=== PATIENT | female | born 1985 | race Caucasian/White ===

== ENCOUNTER 2016-09-26 11:22 | Emergency (ER) | payer OTHER ==
[~2016-09-26] VITALS: Ht 165.1 cm; Wt 115.0 kg
[~2016-09-26 11:22] MED LIST: ALPR.25 PO; BUPR100CR PO; FLUC150T PO; MAXA5TAB2 PO; PRIL40CA PO; PRIS50TA PO; PROP1TAB66 PO; ZOFR4TAB3 SL
[2016-09-26 11:24] VITALS: BP 138/93; PULSE 99; RESP 12; TEMP 97.7; O2SAT 99
[2016-09-26] MEDS ORDERED: SODIUM CHLORIDE 0.9% FLUSH 5 ML FLUSH IVF PRN (14:30)
[2016-09-26] MEDS ORDERED: diphenhydrAMINE HCL 50 MG/ML VIAL IVP ONE (14:30)
[2016-09-26] MEDS ORDERED: KETOROLAC TROMETHAMINE 30 MG/ML (IVP) VIAL IVP ONE (14:30)
[2016-09-26] MEDS ORDERED: SODIUM CHLOR 0.9% 1000 ML INJ 1,000 ML IV ONE (14:30)
[2016-09-26] MEDS ORDERED: PROCHLORPERAZINE INJ 10 MG/2 ML VIAL IVP ONE (14:30)
--- NOTE | 2016-09-26 14:30 | PD ---
HPI Chief Complaint: Headache Time Seen by Provider: 14:27 Travel History International Travel<30 days: No Contact w/Intl Traveler<30days: No Traveled to known affect area: No History of Present Illness HPI 31-year-old female with history of migraine presents to the ED for evaluation of headache. Onset approximately 3 AM today. No prodrome or aura reported. Described as throbbing, over the entire head, similar to previous migraines. Also reports nausea and vomiting, somewhat improved on presentation. She denies dizziness, vision changes, fevers or chills. Patient treats with Botox, propranolol. She states that she also uses Maxalt but was out of this medication today. PFSH Past Medical History Anemia: Yes Anxiety: Yes Depression: Yes GERD: Yes Headaches: Yes Migraines: Yes ?: Not Social History Alcohol Use: Yes (jonathan) Tobacco Use: No Substance Use: No Allergies-Medications (Allergen,Severity, Reaction): Coded Allergies: Imitrex (Verified Allergy, Severe, Chest Pain, 05/04/16) and tightness Reported Meds & Prescriptions Reported Meds & Active Scripts Active Maxalt (Rizatriptan Benzoate) 10 Mg Tab 10 Mg PO ONCE PRN Fluconazole 150 Mg Tab 150 Mg PO ONCE If no relief after three days take a second dose. Zofran ODT (Ondansetron HCl) 4 Mg Tab 4 Mg SL Q6H PRN FOR NAUSEA/VOMITING Reported Inderal (Propranolol HCl) 10 Mg Tab 10 Mg PO BID Desv50 50 Mg Ulises 50 Mg PO DAILY 30 Days Maxalt (Rizatriptan Benzoate) 5 Mg Tab 10 Mg PO DIRECTED PRN REPEAT DOSE AFTER 2 HOURS IF SIGNIFICANT RELIEF IS NOT ACHIEVED Prilosec 40 mg cap (Omeprazole) 40 Mg Cap 40 Mg PO BID Wellbutrin Sr (Bupropion HCl) 100 Mg Tab 100 Mg PO DAILY Xanax 0.25 Mg (Alprazolam) Alprazolam 0.25 mg Tab 1 Tab PO Q6H PRN Review of Systems Except as stated in HPI: all other systems reviewed are Neg Physical Exam Narrative GENERAL: Well-nourished, well-developed white female in no acute distress. Lying on the stretcher with the lights off. SKIN: Warm and dry. HEAD: Normocephalic. Atraumatic. EYES: No scleral icterus. No injection or drainage. PERRLA. EOMI. ENT: Pearly espinosa tympanic membranes bilaterally. Nasal mucosa is moist. Oropharynx without erythema, edema or exudate. NECK: Supple, trachea midline. No JVD or lymphadenopathy. CARDIOVASCULAR: Regular rate and rhythm without murmurs, gallops, or rubs. 2+ DP and radial pulses bilaterally. RESPIRATORY: Breath sounds clear and equal bilaterally. No accessory muscle use. GASTROINTESTINAL: Abdomen soft, non-tender, nondistended. + Bowel sounds MUSCULOSKELETAL: No cyanosis, or edema. Patient is ambulatory, walks with a smooth gait. Moves easily from standing to sitting position. NEUROLOGICAL: Awake and alert. Cranial nerves II through XII intact. Motor and sensory grossly within normal limits. Five out of 5 muscle strength in all muscle groups. Normal speech. BACK: Nontender without obvious deformity. No CVA tenderness. Data Data Last Documented VS Vital Signs Date Time Temp Pulse Resp B/P Pulse Ox O2 Delivery O2 Flow Rate FiO2 09/26/16 11:24 97.7 99 12 138/93 99 Room Air Orders Iv Access Insert/Monitor (09/26/16 14:30) Sodium Chloride 0.9% Flush (Ns Flush) (09/26/16 14:30) Ketorolac Inj (Toradol Inj) (09/26/16 14:30) Prochlorperazine Inj (Compazine Inj) (09/26/16 14:30) Diphenhydramine Inj (Benadryl Inj) (09/26/16 14:30) Sodium Chlor 0.9% 1000 Ml Inj (Ns 1000 M (09/26/16 14:30) MDM Medical Decision Making Medical Screen Exam Complete: Yes Emergency Medical Condition: Yes Differential Diagnosis migraine versus episodic headache versus cephalgia versus less likely ICH versus other Narrative Course 31-year-old female with history of migraine presents to the ED for evaluation of headache. Onset approximately 3 AM today. No prodrome or aura reported. Described as throbbing, over the entire head, similar to previous migraines. Also reports nausea and vomiting, somewhat improved on presentation. She denies dizziness, vision changes, fevers or chills. Vitals reviewed. No focal neural deficit on physical exam. ENT exam is unremarkable. IV was established. Patient was administered Toradol, Compazine, Benadryl, liter of IV fluids. Recheck of the patient after approximately 30 minutes reveals resolution of her symptoms. Patient was instructed to rest, hydrate, avoid known stressors, follow-up with primary care provider. She states that she was out of Maxalt and thus was provided a brief course of the medication. She indicated understanding of instructions, is amenable to plan of care. She is stable and discharged home. Diagnosis Primary Impression: Migraine Qualified Code: G43.009 - Migraine without aura and without status migrainosus , not intractable Referrals: Primary Care Physician Patient Instructions: General Instructions, Migraine Headache (ED) Additional Instructions: Rest, hydrate. Avoid known stressors. Take Maxalt as needed, as prescribed. Follow-up with your primary care provider as discussed. Return to the ED for any urgent or emergent medical condition. Med/Other Pt SpecificInfo: Prescription(s) given Scripts Rizatriptan (Maxalt)10 Mg Tab10 Mg PO ONCE PRN (MIGRAINE HEADACHE) #10 Prov:ER PHYSICIAN 09/26/16 Disposition: 01 DISCHARGE HOME Condition: Stable Doris Fairchild Sep 26, 2016 14:30
[2016-09-26] MEDS ORDERED: MAXA10TA2 PO ×2 (15:45→15:46)
[2016-09-26 15:51] VITALS: BP 141/91; PULSE 101; RESP 20; O2SAT 99
[2017-03-15] MEDS ORDERED: TOPA50TA7 PO (17:49)
[2017-03-15] MEDS ORDERED: ALPR0.25 PO (17:49)
[2017-03-15] MEDS ORDERED: MAXA5TAB2 (17:49)
[2017-03-15] MEDS ORDERED: PROP10TA6 PO (17:49)
[2017-03-15] MEDS ORDERED: [UNRECOGNIZED DRUG - OTHER] (17:49)
[2017-03-15] MEDS ORDERED: BUPR300T PO (17:49)
[2017-03-15] MEDS ORDERED: ADDE20 PO (17:52)
== END 2016-09-26 16:02 | disposition home or self-care (01) ==
LOC: NETRI 11:22
DX: G43.009 Migraine without aura, not intractable, without status migrainosus (principal); F41.8 Other specified anxiety disorders
CPT/HCPCS: 96374; 96375; 99283; J0780; J1200; J1885; J7030

== ENCOUNTER → 2016-10-02 | Outpatient (CLI) | payer OTHER ==
[~2016-10-02] MED LIST changes: +ADDE20 PO; +ALPR0.25 PO; +BUPR300T PO; -FLUC150T PO; +MAXA10TA2 PO; +MAXA5TAB2; -PRIL40CA PO; +PROP10TA6 PO; +TOPA50TA7 PO; -ZOFR4TAB3 SL; +[UNRECOGNIZED DRUG - OTHER]
[2016-10-02 17:01] LABS: RAPID PLASMA REAGIN SCREEN NON-REACTIVE (NON-REACTVE)
[2016-10-04 23:55] LABS: HSV2 IGM IFA NEGATIVE (())
[2016-10-05 08:13] LABS: HSV IGM 1 TITER ND TITER; HSV IGM II TITER ND TITER
== END ==
LOC: ELAB 08:07
PROVIDERS: ATTEND Family Medicine
DX: Z72.51 High risk heterosexual behavior (principal)
CPT/HCPCS: 36415; 86592; 86695; 86696; 86703; 86803

== ENCOUNTER → 2016-11-30 | Outpatient (CLI) | payer OTHER ==
[2016-11-30 10:16] LABS: RAPID PLASMA REAGIN SCREEN NON-REACTIVE (NON-REACTVE)
[2016-12-02 23:53] LABS: HSV2 IGM IFA NEGATIVE (())
[2016-12-03 07:13] LABS: HSV IGM 1 TITER ND TITER; HSV IGM II TITER ND TITER
== END ==
LOC: ELAB 07:11
PROVIDERS: ATTEND Family Medicine
DX: Z72.51 High risk heterosexual behavior (principal)
CPT/HCPCS: 36415; 86592; 86695; 86696; 86703; 86803

== ENCOUNTER → 2017-02-05 | Outpatient (CLI) | payer OTHER ==
[2017-02-05 11:58] LABS: CHLAMYDIA PCR NOT DETECTED (NOT DETECT); NEISSERIA PCR NOT DETECTED (NOT DETECT)
== END ==
LOC: PLAB 07:03
PROVIDERS: ATTEND Obstetrics & Gynecology
DX: Z11.3 Encounter for screening for infections with a predominantly sexual mode of transmission (principal)
CPT/HCPCS: 87491; 87591

== ENCOUNTER → 2017-05-14 | Day surgery (SDC) | payer OTHER ==
[~2017-05-14] MED LIST changes: -ADDE20 PO; +ADDE30XR PO; -ALPR.25 PO; +BIOT10TA PO; -BUPR100CR PO; +CETI-1; +CIME200T23 PO; +CYAN1TAB22; +CYCL1TAB29 PO; +FOLI400T PO; -MAXA5TAB2 PO; -PROP10TA6 PO; -PROP1TAB66 PO; +PROP20TA3 PO; +PROPOFOL 200 MG/20 ML AMP IV ONE; -TOPA50TA7 PO; +TOPI1TAB36 PO; +VITA100064 PO; -[UNRECOGNIZED DRUG - OTHER]
--- NOTE | 2017-05-14 14:11 | GIPROC ---
[facility] [address] [place], [address] EGD PROCEDURE REPORT EXAM DATE: 05/14/2017 PATIENT NAME: Sherine Vaughn MR #: [id number] BIRTHDATE: 1985 ATTENDING: Kandace Garcia MD ORDER #: [id number] LENS ENGRAVER: Loreta Durant PUBLICITY EXPERT STATUS: outpatient INDICATIONS: The patient is a 31 yr old female here for an EGD due to heartburn and epigastric abdominal pain PROCEDURE PERFORMED: EGD w/ biopsy MEDICATIONS: None and Per Anesthesia. TOPICAL ANESTHETIC: CONSENT: The patient understands the risks and benefits of the procedure and understands that these risks include, but are not limited to: sedation, allergic reaction, infection, perforation and/or bleeding. Alternative means of evaluation and treatment include, among others: physical exam, x-rays, and/or surgical intervention. The patient elects to proceed with this endoscopic procedure. medical equipment was checked for proper function. Hand hygiene and appropriate measures for infection prevention was taken. After the risks, benefits and alternatives of the procedure were thoroughly explained, Informed consent was verified, confirmed and timeout was successfully executed by the treatment team. The patient was anesthetized with topical anesthesia and the EC-[id number] ([id number]) endoscope was introduced through the mouth and advanced to the second portion of the duodenum. Retroflexed views revealed no abnormalities The gastroscope was then slowly withdrawn and removed. ESOPHAGUS: There was LA Class A esophagitis noted. A biopsy was performed using cold forceps. Sample sent for histology. STOMACH: There was erythematous moderate gastritis in the gastric antrum. A biopsy was performed using cold forceps. Sample sent for histology. DUODENUM: The duodenal mucosa appeared normal in the bulb and second portion of the duodenum. ADVERSE EVENTS: There were no complications. IMPRESSIONS: 1. There was LA Class A esophagitis noted; biopsy was performed 2. There was erythematous gastritis in the gastric antrum; biopsy was performed 3. Normal duodenal mucosa in the bulb and second portion of the duodenum 4. Retroflexed views revealed no abnormalities RECOMMENDATIONS: 1. Await biopsy results. Biopsy results will not be ready for 7-10 days. If you don't hear from us in two weeks, call our office for biopsy results. 2. Anti-reflux regimen 3. Continue PPI 4. Avoid NSAIDS 5. Follow-up: GI clinic 2 week(s) PATIENT CONDITION: stable DISPOSITION: Home REPEAT EXAM: Return 3 years EGD pending biopsy results Kandace Garcia MD eSigned: Kandace Garcia MD 05/14/2017 2:11 PM cc: Rosa Ferrari PATIENT NAME: Roderick Sherine H MR#: [id number]
== END | disposition home or self-care (01) ==
LOC: ESDC 12:22
PROVIDERS: ATTEND Internal Medicine Gastroenterology
DX: R12 Heartburn (principal); K20.9 Esophagitis, unspecified; K29.70 Gastritis, unspecified, without bleeding
CPT/HCPCS: 00740; 43239; 88305; 88312; J3010

== ENCOUNTER → 2017-08-09 | Outpatient (CLI) | payer OTHER ==
[~2017-08-09] MED LIST changes: +CYCL10TA PO; -CYCL1TAB29 PO; -PROPOFOL 200 MG/20 ML AMP IV ONE; -TOPI1TAB36 PO; +TOPI50TA7 PO
[2017-08-09 17:57] LABS: AUTOMATED NEUTROPHIL # 4.1 TH/MM3 (1.8-7.7); BASOPHIL # 0.1 TH/MM3 (0-0.2); BASOPHIL % 0.6 % (0.0-2.0); EOSINOPHIL # 0.2 TH/MM3 (0-0.4); HEMATOCRIT 42.7 % (35.0-46.0); HEMO FLAGS DIFF FINAL; LYMPH % 39.2 % (9.0-44.0); LYMPHOCYTE # 3.1 TH/MM3 (1.0-4.8); MEAN CELL VOLUME 94.3 FL (80.0-100.0); MONO % 5.9 % (0.0-8.0); NEUT % 52.3 % (16.0-70.0); PLATELET COUNT 310 TH/MM3 (150-450); RED BLOOD COUNT 4.53 MIL/MM3 (4.00-5.30); RED CELL DISTRIBUTION WIDTH 12.5 % (11.6-17.2); WHITE BLOOD COUNT 7.8 TH/MM3 (4.0-11.0)
[2017-08-09 18:18] LABS: ALT (GPT) 25 U/L (10-53); ANION GAP 7 MEQ/L (5-15); AST (GOT) 14 U/L (15-37); BLOOD UREA NITROGEN 12 MG/DL (7-18); CHLORIDE 110 MEQ/L (98-107); GLOMERULAR FILTRATION RATE 65 ML/MIN (>89); POTASSIUM 3.7 MEQ/L (3.5-5.1); SODIUM (NA) 141 MEQ/L (136-145)
[2017-08-09 18:45] LABS: ALKALINE PHOSPHATASE 83 U/L (45-117); TOTAL BILIRUBIN ADULT 0.4 MG/DL (0.2-1.0)
[2017-08-12 15:07] LABS: HSV IGM 1 TITER ND TITER; HSV IGM II TITER ND TITER
[2017-08-14 03:52] LABS: HSV2 IGM IFA NEGATIVE
== END ==
LOC: PLAB 14:41
PROVIDERS: ATTEND Family Medicine
DX: R07.0 Pain in throat (principal); R79.89 Other specified abnormal findings of blood chemistry; R53.83 Other fatigue; D51.0 Vitamin B12 deficiency anemia due to intrinsic factor deficiency; Z72.51 High risk heterosexual behavior
CPT/HCPCS: 36415; 80053; 82306; 82607; 84439; 84443; 84480; 85025; 86592; 86695; 86696; 86703; 86803

== ENCOUNTER → 2017-09-11 | Outpatient (CLI) | payer OTHER ==
[~2017-09-11] MED LIST changes: +CHOL1CAP34 PO; +DESV1TAB PO; -PRIS50TA PO; +TOPI200T7 PO; -TOPI50TA7 PO; +TYLE325T PO
[2017-09-11 15:06] LABS: ANION GAP 6 MEQ/L (5-15); AST (GOT) 11 U/L (15-37); BICARBONATE 25.3 MEQ/L (21.0-32.0); BLOOD UREA NITROGEN 7 MG/DL (7-18); CHLORIDE 108 MEQ/L (98-107); GLOMERULAR FILTRATION RATE 78 ML/MIN (>89); GLUCOSE,FASTING 81 MG/DL (74-99); POTASSIUM 3.8 MEQ/L (3.5-5.1); SODIUM (NA) 139 MEQ/L (136-145)
[2017-09-11 15:09] LABS: ALKALINE PHOSPHATASE 80 U/L (45-117); ALT (GPT) 21 U/L (10-53); TOTAL BILIRUBIN ADULT 0.4 MG/DL (0.2-1.0)
== END ==
LOC: CLAB 14:19
PROVIDERS: ATTEND Nurse Practitioner Family
DX: R94.4 Abnormal results of kidney function studies (principal)
CPT/HCPCS: 36415; 80053